=== PATIENT | male | born 1990 | race African-American/Black ===

== ENCOUNTER 2018-02-24 09:42 | Emergency (ER) | payer OTHER ==
[~2018-02-24] VITALS: Ht 188 cm; Wt 77.1 kg
[2018-02-24 10:04] LABS: ABSOLUTE EOSINOPHILS 0.3 thou/uL (0.0-0.7); ABSOLUTE LYMPHOCYTES 2.3 thou/uL (0.8-5.3); ABSOLUTE MONOCYTES 0.4 thou/uL (0.0-1.2); ABSOLUTE NEUTROPHILS 2.3 thou/uL (1.6-8.1); BASOPHILS 0.6 %; EOSINOPHILS 4.7 %; HEMATOCRIT 44.9 % (42.0-52.0); HEMOGLOBIN 14.2 gm/dL (14.0-18.0); LYMPHOCYTES 43.6 %; MCH 28.5 pg (26.0-34.0); MCHC 31.7 g/dL (28.0-37.0); MCV 89.9 fL (80.0-100.0); MONOCYTES 7.4 %; MPV 8.4 fl. (7.2-11.1); NUCLEATED RBCS 0 /100WBC; PLATELET COUNT* 177 thou/uL (150-400); POLYS 43.7 %; RBC 4.99 mil/uL (4.50-6.00); RDW-CV 13.2 % (10.5-14.5); WBC 5.4 thou/uL (4.0-11.0)
[2018-02-24 10:12] LABS: CALCIUM 8.8 mg/dL (8.5-10.1); CREATININE 1.2 mg/dL (0.6-1.3); POTASSIUM 3.9 mmol/L (3.5-5.1)
[2018-02-24 10:16] LABS: ALBUMIN 4.1 g/dL (3.4-5.0); TOTAL BILIRUBIN 0.2 mg/dL (<0.1-1.0); TOTAL PROTEIN 7.6 g/dL (6.4-8.2)
[2018-02-24 11:50] LABS: URINE BILIRUBIN NEGATIVE (Negative); URINE BLOOD 3+ (Negative); URINE CLARITY CLEAR; URINE COLOR YELLOW; URINE GLUCOSE-RANDOM NEGATIVE (Negative); URINE KETONES NEGATIVE (Negative); URINE LEUKOCYTES-REFLEX NEGATIVE (Negative); URINE NITRITE-REFLEX NEGATIVE (Negative); URINE PROTEIN TRACE (Negative); URINE UROBILINOGEN 0.2 E.U./dl (0.2-1.0)
[2018-02-24] MEDS ORDERED: ZOFRAN ODT4 MG DISSOLVE (11:51)
[2018-02-24] MEDS ORDERED: HYDROCODONE-AP1 EAC6 PO (11:51)
[2018-02-24] MEDS ORDERED: FLOMAX0.4 MG PO (11:51)
[2018-02-24] MEDS ORDERED: IBUPROFEN 800800 M1 PO (11:51)
[2018-02-24 11:57] LABS: BACTERIA-REFLEX None Seen /HPF (None Seen); CASTS None Seen /LPF (None Seen); CRYSTALS None Seen /LPF (None Seen); MUCUS 0-3 Light strn/LPF (None Seen); SQUAMOUS 0-3 Few /LPF (0-3); URINE WBC-REFLEX 0-5 Rare /HPF (0-5)
[2018-02-24 12:07] VITALS: BP 132/71
== END 2018-02-24 12:07 | disposition home or self-care (01) ==
LOC: M.ERS 09:42
PROVIDERS: Emergency Medicine Emergency Medical Services
DX: N20.0 Calculus of kidney (principal)

== ENCOUNTER 2018-11-13 17:50 | Emergency (ER) | payer OTHER ==
[~2018-11-13] VITALS: Ht 188 cm; Wt 74.8 kg
[~2018-11-13 17:50] MED LIST: FLOMAX0.4 MG PO; HYDROCODONE-AP1 EAC6 PO; IBUPROFEN 800800 M1 PO; ZOFRAN ODT4 MG DISSOLVE
[2018-11-13 18:19] LABS: HEMATOCRIT 38.4 % (42.0-52.0); HEMOGLOBIN 12.7 gm/dL (14.0-18.0); MCH 28.2 pg (26.0-34.0); MCV 85.6 fL (80.0-100.0); MPV 7.9 fl. (7.2-11.1); NUCLEATED RBCS 0 /100WBC; PLATELET COUNT* 243 thou/uL (150-400); RBC 4.49 mil/uL (4.50-6.00); RDW-CV 12.5 % (10.5-14.5); WBC 12.7 thou/uL (4.0-11.0)
[2018-11-13 18:27] LABS: CALCIUM 9.4 mg/dL (8.5-10.1); CREATININE 1.3 mg/dL (0.6-1.3)
[2018-11-13 18:32] LABS: ALBUMIN 3.1 g/dL (3.4-5.0); TOTAL BILIRUBIN 0.9 mg/dL (<0.1-1.0); TOTAL PROTEIN 8.5 g/dL (6.4-8.2)
[2018-11-13 18:53] LABS: URINE BLOOD TRACE (Negative); URINE CLARITY CLEAR; URINE COLOR YELLOW; URINE GLUCOSE-RANDOM NEGATIVE (Negative); URINE KETONES 1+ (Negative); URINE LEUKOCYTES-REFLEX NEGATIVE (Negative); URINE NITRITE-REFLEX NEGATIVE (Negative); URINE PROTEIN 2+ (Negative); URINE SPECIFIC GRAVITY 1.025 (1.005-1.030)
[2018-11-13 18:57] LABS: ICTOTEST (BILI CONFIRMATORY) Negative (Negative); URINE BILIRUBIN 1+ (Negative)
[2018-11-13 19:07] LABS: ABSOLUTE LYMPHOCYTES 1.4 thou/uL (0.8-5.3); ABSOLUTE MONOCYTES 0.1 thou/uL (0.0-1.2); ABSOLUTE NEUTROPHILS 11.2 thou/uL (1.6-8.1); PLATELET ESTIMATE ADEQUATE
[2018-11-13 19:10] LABS: MUCUS 4-6 Moderate strn/LPF (None Seen)
[2018-11-13 19:11] LABS: BACTERIA-REFLEX 1-9 Few /HPF (None Seen); SQUAMOUS 0-3 Few /LPF (0-3); URINE WBC-REFLEX 6-15 Few /HPF (0-5)
[2018-11-13 19:12] LABS: URINE RBC 0-2 Rare /HPF (0-2)
[2018-11-13 19:13] LABS: CRYSTALS None Seen /LPF (None Seen); HYALINE CASTS 0-3 Few /LPF (None Seen)
[2018-11-13] MEDS ORDERED: DOXYCYCLINE 10100 MG PO (19:59)
[2018-11-13] MEDS ORDERED: VENTOLIN HFA 1818 GM INH (19:59)
[2018-11-13] MEDS ORDERED: MEDROLDOSEPACK PO (19:59)
[2018-11-13 20:29] VITALS: BP 126/72
== END 2018-11-13 20:30 | disposition home or self-care (01) ==
LOC: M.ERS 17:50
PROVIDERS: Nurse Practitioner Family
DX: N39.0 Urinary tract infection, site not specified (principal); J18.9 Pneumonia, unspecified organism; Z87.442 Personal history of urinary calculi

== ENCOUNTER 2019-06-12 10:14 | Emergency (ER) | payer OTHER ==
[~2019-06-12] VITALS: Ht 188 cm; Wt 79.4 kg
[~2019-06-12 10:14] MED LIST changes: +DOXYCYCLINE 10100 MG PO; +MEDROLDOSEPACK PO; +VENTOLIN HFA 1818 GM INH
[2019-06-12 10:36] LABS: INFLUENZA A ANTIGEN Negative (Negative)
[2019-06-12] MEDS ORDERED: TYLENOL WITH CO1 TA1 PO (10:51)
[2019-06-12] MEDS ORDERED: PROMETHAZI6.25 MG/5 PO (10:51)
[2019-06-12] MEDS ORDERED: ONDANSETRON HCL4 M3 PO (10:51)
[2019-06-12] MEDS ORDERED: TESSALON PERLE100 MG PO (10:51)
[2019-06-12 11:01] VITALS: BP 131/76
== END 2019-06-12 11:05 | disposition home or self-care (01) ==
LOC: M.ERS 10:14
PROVIDERS: Physician Assistant
DX: J10.1 Influenza due to other identified influenza virus with other respiratory manifestations (principal); Z87.442 Personal history of urinary calculi